=== PATIENT | female | born 1985 ===

== ENCOUNTER → 2016-10-29 | Outpatient (CLI) | payer OTHER ==
--- NOTE | 2016-10-29 16:09 | US ---
Ultrasound OB First Trimester October 29, 2016, 1315 Hours Indication: G2, P1 31-year-old female, LMP July 25, 2016. Evaluate for confirmation of dates. Findings: Average ultrasound age is 13 weeks 6 days based on crown-rump length of 77.8 mm. Heart rate is 163 beats per minute. Gestational age based on LMP is 13 weeks 5 days with an estimated date of c onfinement of May 01, 2017. There is a single intrauterine fetus. Limited examination for anatomic e valuation is unremarkable. The right ovary measures 2.7 x 1.5 x 2.6 cm with normal color Doppler flow. The technologist was unab le to demonstrate arterial flow on this ovary. The left ovary measures 3.0 x 2.1 x 2.6 cm with normal color Doppler flow and normal resistive index of 0.6. Impression: Living IUP with a normal heart rate of 163 beats per minute and an average age by ultraso und of 13 weeks 6 days. This is within one day of the calculated gestational age of 13 weeks 5 days b ased on last menstrual period. Estimated date of confinement is May 01, 2017. Consider full anatomic survey at 20 weeks.
== END ==
LOC: FIMAGING 13:06
PROVIDERS: ATTEND Advanced Practice Midwife
DX: Z34.91 Encounter for supervision of normal pregnancy, unspecified, first trimester (principal); Z3A.13 13 weeks gestation of pregnancy

== ENCOUNTER → 2016-12-14 | Outpatient (CLI) | payer OTHER | LOC: FIMAGING 14:17 | PROVIDERS: ATTEND Advanced Practice Midwife | DX: Z34.82 Encounter for supervision of other normal pregnancy, second trimester (principal); Z3A.20 20 weeks gestation of pregnancy ==

== ENCOUNTER → 2017-05-09 | Outpatient (CLI) | payer OTHER | LOC: FIMAGING 09:59 | PROVIDERS: ATTEND Advanced Practice Midwife | DX: O48.0 Post-term pregnancy (principal); Z3A.41 41 weeks gestation of pregnancy ==

== ENCOUNTER 2017-05-12 07:07 | Inpatient (IN) | payer OTHER ==
[2017-05-12] MEDS ORDERED: LR 1,000 ML IV PRN (07:51)
[2017-05-12] MEDS ORDERED: TERBUTALINE SULFATE 1 MG/ML VIAL IV PRN (07:51)
[2017-05-12] MEDS ORDERED: OLIVE OIL 118 ML BTL MISC PRN (07:51)
[2017-05-12] MEDS ORDERED: EPSOM SALT 454 GM TP PRN (07:51)
[2017-05-12] MEDS ORDERED: OXYTOCIN/RINGERS LACTATE 1,000 ML IV PRN (07:51)
[2017-05-12 08:08] LABS: % IMMATURE GRANULYOCYTES 0.7 % (0.0-1.1); ABSOLUTE IMMATURE GRANULOCYTES 0.13 10^3/uL (0.00-0.10); ADD DIFF? NO; ADD MORPH? NO; ADD SCAN? NO; ATYPICAL LYMPHOCYTE FLAG 0 (0-99); FRAGMENT RBC FLAG 0 (0-99); HEMATOCRIT 35.7 % (38.0-47.0); HEMOGLOBIN 11.2 g/dL (12.6-16.3); LEFT SHIFT FLG 0 (0-99); LIPEMIA HEMOLYSIS FLAG 80 (0-99); MEAN CELL HEMOGLOBIN 25.6 pg (27.9-34.1); MEAN CELL HEMOGLOBIN CONCENTR. 31.4 g/dL (32.4-36.7); MEAN CELL VOLUME 81.5 fL (81.5-99.8); MEAN PLATELET VOLUME 12.3 fL (8.7-11.7); PLATELET CLUMPS FLAG 20 (0-99); PLATELET COUNT 197 10^3/uL (150-400); RED BLOOD CELL COUNT 4.38 10^6/uL (4.18-5.33); RED CELL DISTRIBUTION WIDTH 15.3 % (11.5-15.2)
[2017-05-12] MEDS ORDERED: LIDOCAINE 1% 300 MG/30 ML SDV ONE (08:09)
[2017-05-12] MEDS ORDERED: AMMONIA AROMATIC 1 EACH AMP IH ONE (08:09)
[2017-05-12] MEDS ORDERED: OLIVE OIL 118 ML BTL ONE (08:09)
[2017-05-12] MEDS ORDERED: MISOPROSTOL 200 MCG TAB ONE (08:10)
[2017-05-12] MEDS ORDERED: OXYTOCIN 10 UNIT/ML VIAL ONE (08:10)
[2017-05-12] MEDS ORDERED: TERBUTALINE SULFATE 1 MG/ML VIAL ONE (08:10)
[2017-05-12] MEDS ORDERED: ACETAMINOPHEN 325 MG TAB PO PRN (09:13)
[2017-05-12] MEDS ORDERED: HYDROCODONE/APAP 5/325 TAB PO PRN (09:13)
[2017-05-12] MEDS ORDERED: HYDROCORTISONE 0.5% CREAM TP PRN (09:13)
[2017-05-12] MEDS ORDERED: SIMETHICONE 80 MG TAB CHEW PO PRN (09:13)
[2017-05-12] MEDS: IBUPROFEN 600 MG TAB PO PRN ×3 (09:28→22:08)
[2017-05-12 19:40] VITALS: RESP 16; O2SAT 96
--- NOTE | 2017-05-12 22:04 | GHP ---
[f rep st] HISTORY AND PHYSICAL DATE OF ADMISSION: 05/12/2017 ADMISSION DIAGNOSES: 1. Intrauterine at 41-4/7 weeks' gestation. 2. Transfer from Center completely dilated, requesting pain management. INDICATIONS: Patient is a 32-year-old 2, para 1-0-0-1, who is 41-4/7 weeks' gestation. She has been receiving care with the [facility] [place]. She progressed into spontaneous labor and presented [facility]. She had artificial rupture of membranes with clear fluid initially noted. She progressed to complete dilation and began pushing. Due to significant back pa in and labor, patient did try pushing for a prolonged period of time, but ultimately requested trans brandon to the hospital for pain management. On arrival to the hospital, the amniotic fluid was noted t o change to light meconium-stained fluid. She received nitrous, which did help with pain relief. U ltimately, patient was able to push once she was positioned onto her back and used the sheet pull an d was able to have a spontaneous vaginal delivery without any other interventions. The patient's ba by was noted to be in the straight OP/forehead presentation. PAST MEDICAL HISTORY: Diagnosed with PCOS and hyperprolactinemia in 2011 and otherwise unremarkable . MEDICATIONS: vitamins and iron. PAST SURGICAL HISTORY: Negative with the exception of wisdom tooth extraction. ALLERGIES: No known drug allergies. SOCIAL HISTORY: Patient is . She denies tobacco, alcohol, or drug use. She lives with her and their daughter. FAMILY MEDICAL HISTORY: Noncontributory. OBSTETRICAL/GYNECOLOGICAL HISTORY: Menarche at age 13. Periods slightly irregular lasting 3-5 days and heavy with cramping. She is a 2, para 1-0-0-1. In November 2012, she had a spontaneou s vaginal delivery of a 5 pound 15 ounce female at 38-2/7 weeks' gestation. She had an epidu ral. Patient denies any history of any abnormal Pap smears or sexually transmitted diseases. REVIEW OF SYSTEMS: 10-point review of systems was negative with the exception of positive rupture o f membranes, painful contractions. Denies any headaches, changes in vision, nausea, vomiting, fever s, or chills. PHYSICAL EXAMINATION: VITAL SIGNS: Stable. GENERAL APPEARANCE: Uncomfortable, but alert and orie nted x3. NECK: Mobile and supple. HEART: Rate is regular, regular. LUNGS: Clear to auscultatio n bilaterally. ABDOMEN: Gravid, nondistended, nontender. EXTREMITIES: Reveal no calf tenderness or edema. PELVIC: heart tracing was category 2 with variable decelerations with contractions . She was completely dilated and at the +1 station. She was having contractions every 3-5 minutes. LABORATORY DATA: Her blood type is A negative. Her antibody screen was negative. Rubella negative . GBS negative. HBsAg negative. HIV negative. Vitamin D was within normal limits. Her 1-hour gl ucose was 69. ASSESSMENT: A 32-year-old 2, para 1-0-0-1, who presented in active labor, complete dilation with request for pain management. She received nitrous oxide, which assisted with pain and was abl e to push and had a spontaneous vaginal delivery of an occiput posterior baby. Patient plans on oscar astfeeding and will be followed while in the hospital. /[id number]/MODL
[2017-05-12] MEDS: DOCUSATE SODIUM 100 MG CAP PO PRN (22:08)
--- NOTE | 2017-05-13 02:52 | OBDEL ---
Info Type: Vaginal GBS+: No Indications for Delivery: Spontaneous Labor Vaginal Delivery - Labor and Delivery Onset of Contractions Date: 05/12/17 Onset of Contractions Time: 12:00 Onset of Contractions Type: Spontaneous Rupture of Membranes Date: 05/12/17 Rupture of Membranes Type: Artificial Amniotic Fluid Color: Clear Dilation Complete Date: 05/12/17 Placenta Delivery Date: 05/12/17 Placenta Delivery Time: 08:51 Total Hours of Labor: -3 Laceration: 2nd Degree Repair: 3-0 Vaginal Sponge Count Correct: Yes Vaginal Needle Count Correct: Yes Vaginal Sweep Performed: No EBL: 100 Delivery Events: None Operative Report - Delivery L&D Analgesia/Anesthesia Type: Nitrous Data Vargas Delivery Date: 05/12/17 Delivery Time: 08:51 KALIA: 05/01/17 Gestational Age: 41 week(s) and 5 day(s) Sex of Infant: Male [place] Weight (gm): 2804 g Score (1 Min): 8 Score (5 Min): 9
[2017-05-13] MEDS: IBUPROFEN 600 MG TAB PO PRN ×2 (04:20→10:32)
--- NOTE | 2017-05-13 07:06 | OBPP ---
Progress Note Assessment/Plan: Assessment: 1) s/p PPD #1 - pt is stable 2) Anemia - pt is asymptomatic 3) Rh negative - RhoGam eval Plan: Continue routine pp care Plan for d/c if baby is discharged home Instructions reviewed with pt No Rx given Cont PNV Pelvic rest RTC in 4 and 6 weeks 05/13/17 07:05 Subjective: Pt seen and examined. Doing well with no complaints. Minimal cramping. Moderate lochia. Voiding without difficulty. Passing flatus, no BM. BF without difficulty. Objective: 05/13/17 04:25 Patient ABO/Rh A NEGATIVE 05/12/17 07:40 Temp Pulse Resp BP Pulse Ox 36.2 C 72 16 86/55 L 96 05/12/17 19:33 05/12/17 19:33 05/12/17 19:33 05/12/17 22:09 05/12/17 19:33 Uterine Position/Fundal Height: Umbilicus -2 Uterine Tone: Firm Physical Exam - Physical Exam General Appearance: WD/WN, alert, no apparent distress Respiratory: lungs clear, normal breath sounds Cardiac/Chest: regular rate, rhythm Abdomen: normal bowel sounds, hypoactive bowel sounds Extremities: normal range of motion, non-tender Skin: normal color, warm/dry Neuro/Psych: alert, normal mood/affect, oriented x 3
--- NOTE | 2017-05-13 07:10 | OBGCSDC ---
General Delivery Information - General Info : 2 Para: 2 Delivery Physician/CNM: Laxmi Maurer Admission Date: 05/12/17 Labs: Patient ABO/Rh A NEGATIVE 05/12/17 07:40 Hct 27.1 % (38.0-47.0) L D 05/13/17 04:25 Vaginal - Diagnosis Labor: Spontaneous Rupture of Membranes Type: Artificial Amniotic Fluid Color: Clear Laceration: 2nd Degree Repair: 3-0 Delivery Events: None - Operations/Procedures L&D Analgesia/Anesthesia Type: Nitrous - Hospital Course Antepartum: Transfer from center Intrapartum: Active labor; AROM--complete and pushing. Transferred to hospital for pain management. Pushed and pulled with towel. : Uncomplicated; Moderate lochia. Voiding without difficulty. No BM. BF without difficulty. - Delivery Type: Vaginal EBL: 100 L&D Analgesia/Anesthesia Type: Nitrous [place]ot Data Vargas Delivery Date: 05/12/17 Delivery Time: 08:51 KALIA: 05/01/17 Gestational Age: 41 week(s) and 5 day(s) Sex of Infant: Male Weight (gm): 2804 g Score (1 Min): 8 Score (5 Min): 9 Discharge Information - Discharge Information Discharge Medications: Iron, Ibuprofen, Vitamins Condition: Good Instruction/Follow Up: Six Weeks Discharge Physician/CNM: Christen Rojas
[2017-05-13] MEDS: DOCUSATE SODIUM 100 MG CAP PO PRN (10:32)
[2017-05-13 10:54] VITALS: BP 91/60; PULSE 77; TEMP 98.2
== END 2017-05-13 11:30 | disposition home or self-care (01) | DRG 775 ==
LOC: FLD 07:07 → FOB 14:53
PROVIDERS: ADMIT Obstetrics & Gynecology; ATTEND Obstetrics & Gynecology
PROC: 0KQM0ZZ Repair Perineum Muscle, Open Approach (ICD-10-PCS; principal; 2017-05-12)
PROC: 10E0XZZ Delivery of Products of Conception, External Approach (ICD-10-PCS; principal; 2017-05-12)
DX: O48.0 Post-term pregnancy (principal); O70.1 Second degree perineal laceration during delivery; O77.0 Labor and delivery complicated by meconium in amniotic fluid; O90.81 Anemia of the puerperium; Z3A.41 41 weeks gestation of pregnancy; Z37.0 Single live birth
CPT/HCPCS: J2590; J3105